=== PATIENT | female | born 1970 | race Caucasian/White ===

== ENCOUNTER → 2016-11-09 | Outpatient (CLI) | payer BC ==
[~2016-11-09] MED LIST: ALBU1AER9 INH; ALUMSUS PO; ATOR-54 PO; BUPR75TA3 PO; CYAN10004 PO; DILT-113 PO; FEXO1TAB46 PO; FLUT0.15 NAE; LISI-725 PO; VENL75TA4 PO
[2016-11-09 13:43] LABS: BLOOD UREA NITROGEN 9 mg/dl (7-18); BUN/CREATININE RATIO 12.4 (10-20); CALCIUM 8.9 mg/dl (8.5-10.1); CARBON DIOXIDE 27 mmol/L (21-32); CHLORIDE 105 mmol/L (98-107); CREATININE 0.74 mg/dl (0.60-1.20); GLUCOSE 125 mg/dl (70-99); MAGNESIUM 2.1 mg/dl (1.8-2.4); POTASSIUM 3.7 mmol/L (3.5-5.1); SODIUM 139 mmol/L (136-145)
== END | disposition home or self-care (01) ==
LOC: C.LABBC 11:36
PROVIDERS: ATTEND Family Medicine
DX: M79.1 Myalgia (principal)

== ENCOUNTER → 2017-01-18 | Outpatient (CLI) | payer BC ==
[2017-01-18 11:30] LABS: ALT/SGPT 15 U/L (12-78); BLOOD UREA NITROGEN 9 mg/dl (7-18); BUN/CREATININE RATIO 11.6 (10-20); CALCIUM 8.7 mg/dl (8.5-10.1); CARBON DIOXIDE 25 mmol/L (21-32); CHLORIDE 106 mmol/L (98-107); CREATININE 0.75 mg/dl (0.60-1.20); GLUCOSE 114 mg/dl (70-99); POTASSIUM 3.8 mmol/L (3.5-5.1); SODIUM 138 mmol/L (136-145)
[2017-01-18 11:34] LABS: CHOLESTEROL 165 mg/dl (0-200); CHOLESTEROL/HDL RATIO 3.8; HDL CHOLESTEROL 44 mg/dl; LDL CHOLESTEROL CALCULATED 89 mg/dl; TRIGLYCERIDES 158 mg/dl (0-150); VERY LOW DENSITY LIPOPROT CALC 32 mg/dl
[2017-01-18 13:38] LABS: ESTIMATED AVERAGE GLUCOSE 117 mg/dl; HA1C FLAG Normal (Normal)
== END | disposition home or self-care (01) ==
LOC: C.LABBC 07:54
PROVIDERS: ATTEND Family Medicine
DX: E78.00 Pure hypercholesterolemia, unspecified (principal); I10 Essential (primary) hypertension; E88.81 Metabolic syndrome and other insulin resistance

== ENCOUNTER → 2017-01-29 | Outpatient (CLI) | payer BC ==
--- NOTE | 2017-01-29 12:44 | DIAGNOSTIC IMAGING REPORT ---
R HIP UNILATERAL 2 VIEWS CLINICAL HISTORY: M25.551 Right hip painPt with worsening right hip pain. Pos pain pain COMPARISON: None. DISCUSSION: The bones and joint spaces appear intact. There is no evidence of fracture, dislocation or bony disease. There is no evidence for soft tissue swelling. IMPRESSION: Negative study. The above report was generated using voice recognition software. It may contain grammatical, syntax or spelling errors. Electronically signed by: Kaushik Deng M.D. 01/29/2017 12:42 PM Dictated Date/Time: 01/29/2017 12:42 PM
== END | disposition home or self-care (01) ==
LOC: C.RADBC 12:07
PROVIDERS: ATTEND Family Medicine
DX: M25.551 Pain in right hip (principal)

== ENCOUNTER → 2017-04-27 | Outpatient (CLI) | payer BC ==
--- NOTE | 2017-04-27 12:41 | DIAGNOSTIC IMAGING REPORT ---
CHEST 2 VIEWS ROUTINE HISTORY: 46 years-old Female R07.89 Chest discomfortPt with c/o chest discomfort for 3 days acute atypical chest pain with cough COMPARISON: Chest radiograph 11/11/2015 TECHNIQUE: PA and lateral views of the chest FINDINGS: Cardiac mediastinal and hilar silhouettes are within normal limits. Linear subsegmental opacities of the regular suggest atelectasis or scarring. No pneumothorax, pleural effusion or overt pulmonary edema. Bones of the chest appear grossly intact. IMPRESSION: Minimal linear subsegmental atelectasis or scarring of the lingula without acute process. The above report was generated using voice recognition software. It may contain grammatical, syntax or spelling errors. Electronically signed by: Rome Blanco M.D. 04/27/2017 12:40 PM Dictated Date/Time: 04/27/2017 12:36 PM
== END | disposition home or self-care (01) ==
LOC: C.RADBC 12:09
PROVIDERS: ATTEND Family Medicine
DX: R07.89 Other chest pain (principal)

== ENCOUNTER → 2017-05-11 | Outpatient (CLI) | payer BC ==
[~2017-05-11] MED LIST changes: +ALBINS NEB; +ATRINSX NEB; +DOXY100C2 PO; +LSN20 PO; +PRED10TA PO; +PRED20TA PO; +ZCR40 PO
--- NOTE | 2017-05-11 11:02 | DIAGNOSTIC IMAGING REPORT ---
CHEST 2 VIEWS ROUTINE HISTORY: 46 years-old Female J45.901 Asthmatic bronchitis with [id number] acute asthma COMPARISON: Chest radiographs 04/27/2017 and 11/11/2015 TECHNIQUE: PA and lateral views of the chest FINDINGS: Cardiac silhouette is within normal limits. There is are ill-defined right perihilar airspace opacities which appears new from prior study and appears to localize to the right upper lobe on the lateral view. Linear subsegmental left basilar opacities favor atelectasis. No pneumothorax, pleural effusion or overt pulmonary edema. Bones of the chest appear grossly intact. IMPRESSION: 1. New alveolar opacities of the right upper lobe suggest pneumonia. Follow-up imaging to document resolution is recommended. 2. Minimal subsegmental left basilar atelectasis. The above report was generated using voice recognition software. It may contain grammatical, syntax or spelling errors. Electronically signed by: Rome Blanco M.D. 05/11/2017 11:01 AM Dictated Date/Time: 05/11/2017 10:57 AM
== END | disposition home or self-care (01) ==
LOC: C.RADBC 10:40
PROVIDERS: ATTEND Nurse Practitioner Family
DX: J45.901 Unspecified asthma with (acute) exacerbation (principal)

== ENCOUNTER 2017-05-13 10:19 | Emergency (ER) | payer BC ==
[~2017-05-13] VITALS: Ht 165.1 cm; Wt 79.7 kg
[~2017-05-13 10:19] MED LIST changes: -ALBINS NEB; -ATRINSX NEB; -DOXY100C2 PO; -LSN20 PO; -PRED10TA PO; -PRED20TA PO; -ZCR40 PO
[2017-05-13 10:28] VITALS: TEMP 36.9; Ht 165.1 cm; Wt 79.7 kg
[2017-05-13] MEDS ORDERED: METHYLPREDNISOLONE 125 MG VIAL IV STA (10:53)
--- NOTE | 2017-05-13 10:53 | EMERGENCY ROOM VISIT NOTE ---
History Report prepared by Logan: Milan Bernabe Under the Supervision of: Dr. Benjamin Lake M.D. First contact with patient: 10:44 Chief Complaint: COUGH Stated Complaint: COUGH Nursing Triage Summary: Patient states "My doctor called me today and told me to come to the ER. My x-rays Wednesday showed pneumonia." History of Present Illness The patient is a 46 year old female who presents to the Emergency Room with complaints of a persistent illness that started 4 days ago. She states that she had an x-ray 2 days ago which showed pneumonia. The patient says that she has been coughing a lot with a runny nose, and some chest tightness. She notes that she started 100 mg Doxycycline 2 days ago, but has not been getting any better. The patient adds that she has been on Prednisone 40 mg. The patient states that she was not checked for influenza. She denies any loss of consciousness, abdominal pain, urinary symptoms, or calf pain. She notes no recent long trips. The patient has a history of bronchitis. She notes that her son is currently sick. She is an ex-smoker. Source of History: patient Onset: 4 days ago Position: other (global) Symptom Intensity: x-ray showed pneumonia Quality: other (illness) Timing: other (persistent) Associated Symptoms: + cough (with runny nose), + chest pain (tightness), No LOC, No abdominal pain, No urinary symptoms Note: Associated symptoms: Denies calf pain. Review of Systems See HPI for pertinent positives & negatives. A total of 10 systems reviewed and were otherwise negative. Past Medical & Surgical Medical Problems: (1) Bronchitis (2) No chronic problems Surgical Problems: (1) History of hysterectomy Family History Diabetes mellitus FHx: cancer FHx: heart disease Hypertension Social History Smoking Status: Never Smoker Alcohol Use: occasionally Marital Status: Occupation Status: employed Current/Historical Medications Scheduled Diltiazem Hcl Ext Rel (Tiazac), 180 MG PO DAILY Doxycycline Hyclate (Vibramycin), 100 MG PO DAILY Ipratropium [place] (Atrovent 0.02% Soln), 1 TUBE NEB Q4H Lisinopril (Zestril), 0.5 TABLET PO BID Lisinopril (Lisinopril), 20 MG PO BID Prednisone (Prednisone), 10 MG PO DIRECTED Prednisone (Prednisone), 2 TAB PO DAILY Simvastatin (Simvastatin), 40 MG PO DAILY Venlafaxine Hcl (Effexor), 75 MG PO DAILY Scheduled PRN Albuterol Sulf (Albuterol Sulfate), 1 TUBE NEB Q4 PRN for Wheezing Allergies Coded Allergies: POLLEN (Unverified Allergy, Mild, FROM [facility] RECORD, 10/16/14) Levofloxacin (Unverified Allergy, Unknown, FR [facility] RECORD, 10/16/14) Tramadol (Unverified Allergy, Unknown, [facility] RECORD, 10/16/14) Physical Exam Vital Signs Date Time Temp Pulse Resp B/P (MAP) Pulse Ox O2 Delivery O2 Flow Rate FiO2 05/13/17 13:49 105 22 149/84 93 05/13/17 12:35 101 22 134/80 99 Room Air 05/13/17 11:48 88 15 120/78 98 Nebulizer 05/13/17 11:31 81 18 93 Room Air 05/13/17 10:58 98 05/13/17 10:31 96 Room Air 05/13/17 10:28 36.9 107 18 143/97 97 Room Air Physical Exam GENERAL: Patient is unwell appearing and in mild acute distress. EYES: No scleral icterus, unremarkable pupils. ENT: Mucous membranes moist, no nasal congestion. NECK: No masses appreciated, no meningismus, trachea is midline. RESPIRATORY: Productive junky cough. Diffuse wheezing all lung rodriguez. Crackles throughout right lung field. CARDIOVASCULAR: Regular rate and rhythm. No murmurs, rubs, gallops appreciated. GASTROINTESTINAL: Abdomen soft, nontender, no peritonitis. Bowel sounds positive. No masses appreciated. BACK: No midline tenderness, no CVA tenderness EXTREMITIES: Normal motion all extremities, no cyanosis, no edema. NEUROLOGIC: Alert and oriented, no acute motor or sensory deficits, no focal weakness, cranial nerves grossly intact. SKIN: No rash, no jaundice, no diaphoresis. Medical Decision & Procedures ER Provider Diagnostic Interpretation: X ray results are stated below per my interpretation and the radiologist's interpretation. CHEST ONE VIEW PORTABLE CLINICAL HISTORY: 46 years-old Female presenting with 2 days ago RUL infiltrate. Symptoms worsening. TECHNIQUE: Portable upright AP view of the chest was obtained. COMPARISON: 05/11/2017. FINDINGS: Cardiomediastinal silhouette normal. Lungs and pleural spaces clear. Osseous structures normal. Upper abdomen normal. IMPRESSION: 1. No acute cardiopulmonary disease. Electronically signed by: Dimas Chandler M.D. 05/13/2017 11:16 AM Dictated Date/Time: 05/13/2017 11:15 AM Laboratory Results 05/13/17 11:00 Red Blood Count 4.90, Mean Corpuscular Volume 90.8, Mean Corpuscular Hemoglobin 31.6, Mean Corpuscular Hemoglobin Concent 34.8, Mean Platelet Volume 8.5, Neutrophils (%) (Auto) 54.5, Lymphocytes (%) (Auto) 29.6, Monocytes (%) (Auto) 11.2, Eosinophils (%) (Auto) 4.0, Basophils (%) (Auto) 0.4, Neutrophils # (Auto ) 5.52, Lymphocytes # (Auto) 3.00, Monocytes # (Auto) 1.13, Eosinophils # (Auto ) 0.41, Basophils # (Auto) 0.04 05/13/17 11:00 Test 05/13/17 11:00 05/13/17 11:15 White Blood Count 10.13 K/uL (4.8-10.8) Red Blood Count 4.90 M/uL (4.2-5.4) Hemoglobin 15.5 g/dL (12.0-16.0) Hematocrit 44.5 % (37-47) Mean Corpuscular Volume 90.8 fL (80-100) Mean Corpuscular Hemoglobin 31.6 pg (25-34) Mean Corpuscular Hemoglobin Concent 34.8 g/dl (32-36) Platelet Count 327 K/uL (130-400) Mean Platelet Volume 8.5 fL (7.4-10.4) Neutrophils (%) (Auto) 54.5 % Lymphocytes (%) (Auto) 29.6 % Monocytes (%) (Auto) 11.2 % Eosinophils (%) (Auto) 4.0 % Basophils (%) (Auto) 0.4 % Neutrophils # (Auto) 5.52 K/uL (1.4-6.5) Lymphocytes # (Auto) 3.00 K/uL (1.2-3.4) Monocytes # (Auto) 1.13 K/uL (0.11-0.59) Eosinophils # (Auto) 0.41 K/uL (0-0.5) Basophils # (Auto) 0.04 K/uL (0-0.2) RDW Standard Deviation 43.0 fL (36.4-46.3) RDW Coefficient of Variation 13.0 % (11.5-14.5) Immature Granulocyte % (Auto) 0.3 % Immature Granulocyte # (Auto) 0.03 K/uL (0.00-0.02) Anion Gap 8.0 mmol/L (3-11) Est Creatinine Clear Calc Drug Dose 87.3 ml/min Estimated GFR () 96.6 Estimated GFR (Non- 83.3 BUN/Creatinine Ratio 15.5 (10-20) Calcium Level 9.1 mg/dl (8.5-10.1) Total Creatine Kinase 47 U/L (26-192) Creatine Kinase MB 0.9 ng/ml (0.5-3.6) Creatine Kinase MB Ratio 1.9 (0-3.0) Troponin I < 0.015 ng/ml (0-0.045) Influenza Type A (RT-PCR) Neg for Influ A (NEG) Influenza Type B (RT-PCR) Neg for Influ B (NEG) Laboratory results as reviewed by me. Medications Administered Medications (Trade) Dose Ordered Sig/Michelle Route Start Time Stop Time Status Last Admin Dose Admin Methylprednisolone Sodium Succinate (Solu-Medrol IV) 125 mg NOW STAT IV 05/13/17 10:53 05/13/17 10:55 DC 05/13/17 11:06 125 MG Albuterol/ Ipratropium (Duoneb) 12 ml ONE ONCE INH 05/13/17 11:00 05/13/17 11:01 DC 05/13/17 11:00 12 ML ECG Per My Interpretation Indication: chest pain Rate (beats per minute): 80 Rhythm: normal sinus Findings: no acute ischemic change, no ectopy, other (QTC of 470) ED Course 1048: The patient was evaluated in room C9. A complete history and physical exam was performed. 1235: Upon reevaluation, the patient is still wheezing loudly despite more than an hour of the nebulizer treatment. She does not feel comfortable going home . Discussed results and treatment plan with the patient. She verbalized understanding and agreement with the treatment plan. The patient will be evaluated for further management. 1241: I discussed the patient with Dr. Moreira - [facility] [place] - he says he will see the patient first. 1317: I discussed the patient with Dr. Harish HIGGINS hospitalist - he says the patient should be discharged with nebulizers, further Prednisone, and continue the Doxycycline. 1337: Reevaluated the patient and she feels comfortable going home and would like a work note for the week. Discussed results and discharge instructions: she verbalized understanding and agreement. The patient is ready for discharge. Medical Decision Differential: Infectious, Reactive Airway Disease, Pneumonia, Pneumothorax, COPD , CHF, ACS, Pulmonary Embolism, MSK, GI, Dissection, amongst other etiologies entertained. 46 yr old female who likely has some underlying asthma/copd issues given history arrives for evaluation of failure outpatient therapy of bronchitis in setting of PNA diagnosed 2 days ago by CXR. Exam consistent iwth exacerbation worse on right side. CXR not convincing for pneumonia today. No risks of PE and symptoms not consistent with that. No eivdence of CHF nor ACS as cause. She is getting somewhat better with hour neb but given continued wheezing I discussed case with hospitalist. They evaluated her and do not feel she needs to be admitted at this time. I discussed this with jane who is agreeable to continue trying home therapy. Written nebulizer and albuterol along with 2 more days of steroids. She will continue her doxycyline. She is aware she can return at any time if worsening or other concerns. She is stable and breathing comfortably. Will will continue to consider this reactive airway disease secondary to pneumonia. She was encouraged to follow closely with her PCP and discuss pulm func tests as well. Medication Reconcilliation Current Medication List: was personally reviewed by me Blood Pressure Screening Patient's blood pressure: Elevated blood pressure Monitored by hospitalist. Consults Time Called: 1237 Consulting Physician: Dr. Harish HIGGINS hospitalist Returned Call: 1241 I discussed the patient with Dr. Harish HIGGINS hospitalist - he says he will see the patient first. Additional Consults: Time Called: -- Consulted Physician: Dr. Harish HIGGINS hospitalist Returned Call: [phone] Additional Comments: I discussed the patient with Dr. Harish HIGGINS hospitalist - he says the patient should be discharged with nebulizers, further Prednisone, and continue the Doxycycline. Impression Primary Impression: PNA (pneumonia) Additional Impression: Acute respiratory distress Scribe Attestation The scribe's documentation has been prepared under my direction and personally reviewed by me in its entirety. I confirm that the note above accurately reflects all work, treatment, procedures, and medical decision making performed by me. Departure Information Dispostion Home / Self-Care Prescriptions Prednisone (Prednisone) 20 Mg Tab 2 TAB PO DAILY for 2 Days, #4 TAB Prov: Benjamin Lake M.D. 05/13/17 Albuterol Sulf (Albuterol Sulfate) 2.5 Mg/3 Ml Nebu 1 TUBE NEB Q4 Y for Wheezing, #1 BOX Prov: Benjamin Lake M.D. 05/13/17 Ipratropium [place] (Atrovent 0.02% Soln) 2.5 Ml Nebu 1 TUBE NEB Q4H, #1 BOX Prov: Benjamin Lake M.D. 05/13/17 Referrals No Doctor, Assigned (PCP) Patient Instructions My [facility] Additional Instructions We are always here to help. If you feel symptoms are worsening or you are having other issues call 911 or return immediately. Follow up with your Primary Provider for repeat evaluation. Problem Qualifiers
[2017-05-13] MEDS ORDERED: ALBUT/IPRATROP 3MG/0.5MG NEB 3 ML VIAL INH ONE (11:00)
[2017-05-13 11:15] LABS: BASO % 0.4 %; BASO ABS # 0.04 K/uL (0-0.2); EOS ABS # 0.41 K/uL (0-0.5); HEMATOCRIT 44.5 % (37-47); HEMOGLOBIN 15.5 g/dL (12.0-16.0); IG# 0.03 K/uL (0.00-0.02); LYMPH % 29.6 %; MEAN CELL VOLUME 90.8 fL (80-100); MEAN CORPUSCULAR HEMOGLOBIN 31.6 pg (25-34); MEAN CORPUSCULAR HGB CONC 34.8 g/dl (32-36); MEAN PLATELET VOLUME 8.5 fL (7.4-10.4); MONO % 11.2 %; MONO ABS # 1.13 K/uL (0.11-0.59); NEUT % 54.5 %; NEUT ABS # 5.52 K/uL (1.4-6.5); PLATELET COUNT 327 K/uL (130-400); WHITE BLOOD COUNT 10.13 K/uL (4.8-10.8)
--- NOTE | 2017-05-13 11:17 | DIAGNOSTIC IMAGING REPORT ---
CHEST ONE VIEW PORTABLE CLINICAL HISTORY: 46 years-old Female presenting with 2 days ago RUL infiltrate. Symptoms worsening. TECHNIQUE: Portable upright AP view of the chest was obtained. COMPARISON: 05/11/2017. FINDINGS: Cardiomediastinal silhouette normal. Lungs and pleural spaces clear. Osseous structures normal. Upper abdomen normal. IMPRESSION: 1. No acute cardiopulmonary disease. Electronically signed by: Dimas Chandler M.D. 05/13/2017 11:16 AM Dictated Date/Time: 05/13/2017 11:15 AM
[2017-05-13 11:31] VITALS: PULSE 81; O2SAT 93
[2017-05-13 11:33] LABS: BLOOD UREA NITROGEN 13 mg/dl (7-18); CALCIUM 9.1 mg/dl (8.5-10.1); CARBON DIOXIDE 26 mmol/L (21-32); CREATININE 0.84 mg/dl (0.60-1.20); GLUCOSE 129 mg/dl (70-99); SODIUM 139 mmol/L (136-145)
[2017-05-13 11:38] LABS: CKMB 0.9 ng/ml (0.5-3.6)
[2017-05-13] MEDS ORDERED: DOXY100C2 PO (11:41)
[2017-05-13] MEDS ORDERED: LSN20 PO (11:41)
[2017-05-13] MEDS ORDERED: ZCR40 PO (11:41)
[2017-05-13] MEDS ORDERED: PRED10TA PO (11:41)
[2017-05-13 12:15] LABS: INFLUENZA A PCR Neg for Influ A (NEG); INFLUENZA B PCR Neg for Influ B (NEG)
[2017-05-13] MEDS ORDERED: PRED20TA PO (13:29)
[2017-05-13] MEDS ORDERED: ATRINSX NEB (13:29)
[2017-05-13] MEDS ORDERED: ALBINS NEB (13:29)
--- NOTE | 2017-05-13 13:29 | Medical Consult ---
Consultation Date of Consultation: May 13, 2017. Attending Physician: Reason for Consultation: Medical CO management History of Present Illness 46 years old female with past medical history of mild intermittent asthma that flares about once a year when she gets bronchitis, patient also has hypertension and dyslipidemia. As per patient she has only albuterol inhaler at home for her asthma and she only uses it once a year when she gets bronchitis and asthma exacerbation. 5 days ago patient son had upper respiratory tract infection at home and she caught it from him. She started coughing and had some shortness of breath. She started using her asthma inhaler. She saw her primary care physician 2 days ago who started her on doxycycline and tapering dose of prednisone. Patient used her albuterol inhaler 3 times yesterday and came today to the hospital for further evaluation. On arrival patient oxygen saturation were above 95 on room air heart rate was always between 80 and 90 until she received albuterol inhaler which went to about 100.. Patient still have symptoms of upper respiratory tract infection but nothing significant. Appears to be comfortable not using accessory muscles of respiration. She does not smoke and lives with her nobody smokes in the house Past Medical/Surgical History Medical Problems: (1) Acute respiratory distress Status: Acute (2) PNA (pneumonia) Status: Acute Family History Diabetes mellitus FHx: cancer FHx: heart disease Hypertension Social History Smoking Status: Never Smoker Marital Status: Occupation Status: employed Allergies Coded Allergies: POLLEN (Unverified Allergy, Mild, FROM [facility] RECORD, 10/16/14) Levofloxacin (Unverified Allergy, Unknown, FR [facility] RECORD, 10/16/14) Tramadol (Unverified Allergy, Unknown, [facility] RECORD, 10/16/14) Review of Systems Review of system Constitutional: No fever / no chills / no sweats / no weakness / no fatigue Eyes: no blurring of vision / no eye pain / no discharge / no redness ENT: no hearing loss / no epistaxis /no swallowing problems Respiratory: Cough wheezing and shortness of breath as in HPI Cardiovascular: no Chest pain / no lower extremity edema / no palpitation Abdomen: no pain / no nausea / no vomiting / no constipation Musculoskeletal: no joint pain / no muscle pain / no joint swelling Genitourinary: no dysuria / no incontinence / no urinary retention Neurologic: no focal weakness / no numbness/tingling / no ataxia Psychiatric: no depression symptoms / no anxiety / no insomnia Endocrine: no excessive thirst / no excessive urination Hematologic: no abnormal bleeding / no bruising / no LN swelling Skin: No rash / no pallor Physical Exam Date Time Temp Pulse Resp B/P (MAP) Pulse Ox O2 Delivery O2 Flow Rate FiO2 05/13/17 12:35 101 22 134/80 99 Room Air 05/13/17 11:48 88 15 120/78 98 Nebulizer 05/13/17 11:31 81 18 93 Room Air 05/13/17 10:58 98 05/13/17 10:31 96 Room Air 05/13/17 10:28 36.9 107 18 143/97 97 Room Air Physical examination General patient appears to be comfortable, not in acute distress HEENT: Atraumatic , normocephalic /no jaundice /no pallor /anicteric /no dry mucous membrane /normal external ear inspection Neck: Supple /no swelling /central trach Heart: S1/S2 normal/regular rate and rhythm/no gallop /no rub /no murmur Lungs: Mild wheezing bilaterally/normal chest with expansion/few scattered rhonchi/no use of accessory muscles of respiration Abdomen: Soft/nontender/no guarding/no rebound/no organomegaly/no pulsatile mass Musculoskeletal: No swelling/no edema/no tenderness/normal range of motion Neuro exam: Awake alert oriented 3/cranial nerves II through XII appear to be intact/sensation intact/moves all extremities/no abnormal movements Psychiatric evaluation: No depressed mood/normal affect Skin: No rash on exposed skin area/no erythema Extremity: Normal pulse/no pitting edema/no clubbing or cyanosis Endocrine/lymphatic: No obvious lymphadenopathy /no lymphedema Laboratory Results Last 24 Hours Test 05/13/17 11:00 05/13/17 11:15 White Blood Count 10.13 K/uL Red Blood Count 4.90 M/uL Hemoglobin 15.5 g/dL Hematocrit 44.5 % Mean Corpuscular Volume 90.8 fL Mean Corpuscular Hemoglobin 31.6 pg Mean Corpuscular Hemoglobin Concent 34.8 g/dl Platelet Count 327 K/uL Mean Platelet Volume 8.5 fL Neutrophils (%) (Auto) 54.5 % Lymphocytes (%) (Auto) 29.6 % Monocytes (%) (Auto) 11.2 % Eosinophils (%) (Auto) 4.0 % Basophils (%) (Auto) 0.4 % Neutrophils # (Auto) 5.52 K/uL Lymphocytes # (Auto) 3.00 K/uL Monocytes # (Auto) 1.13 K/uL Eosinophils # (Auto) 0.41 K/uL Basophils # (Auto) 0.04 K/uL RDW Standard Deviation 43.0 fL RDW Coefficient of Variation 13.0 % Immature Granulocyte % (Auto) 0.3 % Immature Granulocyte # (Auto) 0.03 K/uL Sodium Level 139 mmol/L Potassium Level 3.0 mmol/L Chloride Level 105 mmol/L Carbon Dioxide Level 26 mmol/L Anion Gap 8.0 mmol/L Blood Urea Nitrogen 13 mg/dl Creatinine 0.84 mg/dl Est Creatinine Clear Calc Drug Dose 87.3 ml/min Estimated GFR () 96.6 Estimated GFR (Non- 83.3 BUN/Creatinine Ratio 15.5 Random Glucose 129 mg/dl Calcium Level 9.1 mg/dl Total Creatine Kinase 47 U/L Creatine Kinase MB 0.9 ng/ml Creatine Kinase MB Ratio 1.9 Troponin I < 0.015 ng/ml Influenza Type A (RT-PCR) Neg for Influ A Influenza Type B (RT-PCR) Neg for Influ B Assessment & Plan 46-year-old female with hypertension, dyslipidemia and mild asthma presented to the hospital with bronchitis and asthma exacerbation. Assessment Acute bronchitis Mild intermittent asthma with exacerbation Hypertension controlled Dyslipidemia Plan Patient seen in the ED She appears to be coherent, intelligent, compliant with medications with good social economic status and family support Patient never been hospitalized before for asthma never been intubated before in her life Not using accessory muscles of respiration vitals are all within normal limits oxygen saturation is within normal limits on room air And no tachycardia Chest x-ray showed no pneumonia Giving all of the above I think patient can be treated safely at home but will require nebulizer machine. Explained to patient how to use albuterol and Atrovent mixing them together every 6 hours for the next few days then switch to as needed Also explained to her that she has to start her prednisone course from the beginning she was then tapering dose of prednisone starting from 40 she can continue doxycycline for possible underlying bronchitis Clearly explained to them to come back immediately if she gets worse or gets more short of breath Family appreciated and understood my recommendations Discussed all these recommendations with Dr. Lake who agreed with the plan Patient will need pulmonary function test in 8 weeks after resolution of her symptoms
[2017-05-13 13:49] VITALS: BP 149/84; PULSE 105; O2SAT 93
== END 2017-05-13 13:51 | disposition home or self-care (01) ==
LOC: C.EDB 10:21 → C.EDC 13:51
DX: J18.9 Pneumonia, unspecified organism (principal); J06.9 Acute upper respiratory infection, unspecified; Z83.3 Family history of diabetes mellitus; Z82.49 Family history of ischemic heart disease and other diseases of the circulatory system

== ENCOUNTER → 2017-06-24 | Outpatient (CLI) | payer BC ==
[~2017-06-24] MED LIST changes: +ALBINS NEB; -ALBU1AER9 INH; -ALUMSUS PO; -ATOR-54 PO; +ATRINSX NEB; -BUPR75TA3 PO; -CYAN10004 PO; +DOXY100C2 PO; -FEXO1TAB46 PO; -FLUT0.15 NAE; +LSN20 PO; +PRED10TA PO; +ZCR40 PO
--- NOTE | 2017-06-24 12:14 | DIAGNOSTIC IMAGING REPORT ---
L FOOT MIN 3 VIEWS ROUTINE HISTORY: 47 years-old Female M79.672 Acute foot pain, left acute left foot pain without known trauma COMPARISON: None available TECHNIQUE: 3 views of the left foot FINDINGS: Type II accessory navicular. Small plantar and Achilles enthesophytes about the calcaneus. There is no acute fracture or dislocation. Mild dorsal forefoot soft tissue prominence without opaque foreign body. Mild cortical thickening of the medial cortex third metatarsal. IMPRESSION: 1. Mild dorsal forefoot soft tissue prominence without acute fracture or dislocation. There is however mild cortical thickening involving the medial cortex of the third metatarsal which may reflect sequela of healed stress response/stress fracture. 2. Mild degenerative changes as above. The above report was generated using voice recognition software. It may contain grammatical, syntax or spelling errors. Electronically signed by: Rome Blanco M.D. 06/24/2017 12:12 PM Dictated Date/Time: 06/24/2017 12:09 PM
== END | disposition home or self-care (01) ==
LOC: C.RADBC 11:33
PROVIDERS: ATTEND Family Medicine
DX: M79.672 Pain in left foot (principal)

== ENCOUNTER → 2017-09-28 | Day surgery (SDC) | payer BC ==
[2017-09-02 15:50] VITALS: Ht 165.1 cm; Wt 81.8 kg
[~2017-09-28] VITALS: Ht 165.1 cm; Wt 81.8 kg
[~2017-09-28] MED LIST changes: +ACETAMINOPHEN 500 MG TAB PO STA; +ATROPINE SULFATE 0.1 MG/ML 5ML SYR IV PRN; +BUPIVACAINE 0.5 % 5 MG/1 ML PF 10ML VIAL ONE; +CEFAZOLIN 2000MG IV PUSH 15 ML IV SCH; -DILT-113 PO; -DOXY100C2 PO; +EpHEDrine SULFATE INJ 50 MG/ML AMP IV PRN; +FENTANYL CITRATE INJ 50 MCG/1 ML 2 ML VIAL IV PRN; +FENTANYL CITRATE INJ 50 MCG/1 ML 2 ML VIAL ONE; +FEXO1TAB49 PO; +FLUMAZENIL 0.1 MG/1 ML 10 ML VIAL IV PRN; +LABETALOL HCL IV 5 MG/ML 20ML IV PRN; +LACTATED RINGER'S 1000ML 1,000 ML IV SCH; +LIDOCAINE HCL 1% 20 ML VIAL ONE; +LIDOCAINE HCL 2% 2 ML VIAL (20MG/ML) ONE; -LISI-725 PO; +LISI-726 PO; -LSN20 PO; +MEPERIDINE HCL 25 MG/ML CARP IV PRN; +MIDAZOLAM HCL 1 MG/ML 2ML VIAL ONE; +NALOXONE HCL 0.4 MG/1 ML VIAL/CARP IV PRN; +ONDANSETRON INJ 2 MG/ML 2 ML VIAL IV PRN; +PHENYLEPHRINE 100MCG/ML 5ML SYR IV PRN; -PRED10TA PO; +PROPOFOL IV EMULSION 10 MG/ML 20 ML VIAL ONE; +SODIUM CHLORIDE 0.9% 1000ML 1,000 ML IV SCH
--- NOTE | 2017-09-28 09:35 | History & Physical Bridge - SC ---
H&P Re-Evaluation Bridge Note: I have examined the patient, reviewed the History & Physical and in the interval since the performance of the History & Physical I have noted the following changes of clinical significance: No changes noted
--- NOTE | 2017-09-28 10:57 | [facility] Post Operative Brief Note ---
Immediate Operative Summary Operative Date Sep 28, 2017. Pre-Operative Diagnosis Left Carpal Tunnel Syndrome Post-Operative Diagnosis Same Procedure(s) Performed Left Carpal Tunnel Release Surgeon Dr. Urbina Cushion Builder Surgeon(s) Dontrell Posada PA-C Estimated Blood Loss 0 Findings Consistent with Post-Op Diagnosis Specimens None Drains None Anesthesia Type MAC Complication(s) none Disposition Accompanied Pt To Recover: no Disposition:
[2017-09-28 11:00] VITALS: TEMP 36.7
--- NOTE | 2017-09-28 11:05 | Discharge Instructions-[facility] ---
Discharge Instructions Date of Service Sep 28, 2017. Visit Reason for Visit: Left Carpal Tunnel Syndrome Discharge Discharge Diagnosis / Problem: SAME ABOVE Discharge Goals Goal(s): Decrease discomfort, Improve function Activity Recommendations Activity Limitations: as noted below Lifting Limitations: until after follow-up appointment Exercise/Sports Limitations: until after follow-up appointment Shower/Bathe: keep incision dry Anesthesia . Post Anesthesia Instructions: If you have had General Anesthesia or IV Sedation: * Do not drive today. * Resume driving when surgeon permits. * Do not make important decisions or sign legal documents today. * Call surgeon for: 1. Temperature elevations greater than 101 degrees F. 2. Uncontrollable pain. 3. Excessive bleeding. 4. Persistent nausea and vomiting. 5. Medication intolerance (nausea, vomiting or rash). * For nausea and vomiting use only clear liquids such as: tea, soda, bouillon until nausea subsides, then gradually increase diet as tolerated. * If you have any concerns or questions, call your surgeon's office. If physician is unavailable and it is an emergency, call 911 or go to the nearest emergency room. . Instructions / Follow-Up Instructions / Follow-Up MEDICATIONS: * Resume previous medications unless instructed otherwise by your surgeon. * Always take pain medication on a full stomach or with food to avoid upset stomach. * Do not drink alcohol or drive while taking narcotics. * Ibuprofen or Tylenol may be taken if narcotic not needed. SPECIAL CARE INSTRUCTIONS: __ None _X_ Keep extremity elevated and iced x 48 hours; apply ice 20-30 minutes 8-10 times/day. May remove at night. __ Sling __24 hrs/day __ Remove at night __ Shoulder Immobilizer __ 24 hrs/day __ Remove at night _X_ Dressing _X_ Maintain until seen in office, may shower with plastic over site __ Remove dressings in 24-48 hours and then may shower __ Cover incisions with band-aids after showering __ Do not remove steri-strips YOU CAN USE 800 MG OF IBUPROFEN 3X DAY OR 2 ALLEVE IN AM AND 2 IN PM. YOU CAN ALSO ADD TYLENOL 1000 MG EVERY 8 HOURS NEEDED FOR PAIN Call physician if chills or temperature rises above 102 degrees or pain unrelieved by prescribed pain medications at . . MEDICATIONS: * Resume previous medications unless instructed otherwise by your surgeon. * Always take pain medication on a full stomach or with food to avoid upset stomach. * Do not drink alcohol or drive while taking narcotics. * Ibuprofen or Tylenol may be taken if narcotic not needed. SPECIAL CARE INSTRUCTIONS: __ None __ Keep extremity elevated and iced x 48 hours; apply ice 20-30 minutes 8-10 times/day. May remove at night. __ Crutches __ May discard when able __ Brace/Post-op shoe __ 24 hrs/day __ Remove at night __ Dressing __ Maintain until seen in office, may shower with plastic over site __ Remove dressings in 24-48 hours and then may shower __ Cover incisions with band-aids after showering __ Do not remove steri-strips Call physician if chills or temperature rises above 102 degrees or pain unrelieved by prescribed pain medications. Office [phone] Diet Recommendations Home Diet: resume previous diet Procedures Procedures Performed: Left Carpal Tunnel Release Pending Studies Studies pending at discharge: no Medical Emergencies . Who to Call and When: Medical Emergencies: If at any time you feel your situation is an emergency, please call 911 immediately. . Non-Emergent Contact Non-Emergency issues call your: Primary Care Provider . . "Provider Documentation" section prepared by Dannie Posada. .
[2017-09-28 11:26] VITALS: BP 119/81; PULSE 69; O2SAT 97
--- NOTE | 2017-09-28 11:27 | Anesthesia Progress Nt - [facility] ---
Anesthesia Post Op Note Date & Time Sep 28, 2017 at 11:27 Vital Signs Pain Intensity: 0 Vital Signs Past 12 Hours Date Time Temp Pulse Resp B/P (MAP) Pulse Ox O2 Delivery O2 Flow Rate FiO2 09/28/17 11:26 69 16 119/81 (94) 97 Room Air 09/28/17 11:00 36.7 68 14 119/74 (89) 96 Room Air 09/28/17 09:16 36.8 78 16 126/83 (97) 98 Room Air Notes Mental Status: alert / awake / arousable, participated in evaluation Pt Amnestic to Procedure: Yes Nausea / Vomiting: adequately controlled Pain: adequately controlled Airway Patency, RR, SpO2: stable & adequate BP & HR: stable & adequate Hydration State: stable & adequate Anesthetic Complications: no major complications apparent
--- NOTE | 2017-09-28 13:15 | OPERATIVE REPORT ---
DATE OF OPERATION: 09/28/2017 PREOPERATIVE DIAGNOSIS: Left carpal tunnel. POSTOPERATIVE DIAGNOSIS: Same. PROCEDURE: Decompression, median nerve release, transverse carpal ligament, left wrist. SURGEON: Dimas Urbina MD IRON MINER: Dannie Posada PA-C. ANESTHESIOLOGIST: Dr. Rodriguez. ANESTHESIA: Local with IV sedation. DRAINS: None. COMPLICATIONS: None. CONDITION: The patient tolerated the procedure well and returned to recovery room in apparent satisfactory condition. INDICATIONS FOR SURGERY: Sonam is a 47-year-old female who has had increasing pain, numbness, and tingling in the left hand consistent with carpal tunnel syndrome. Went over treatment options and elected to go ahead and proceed with surgery. The procedure, expected outcome, side effects were all explained in detail. DESCRIPTION OF PROCEDURE: The patient was taken to the OR at which time she was placed supine on the operating table. The left hand was prepped and draped in the usual sterile fashion for this surgery. The anticipated incision site was infiltrated with 1% Xylocaine. A forearm tourniquet was placed on the arm and tourniquet was placed up to 250 mmHg. Incision was made vertically over the transverse carpal tunnel ligament. Dissection was done down until the palmar fascia was identified and divided with a 15-blade. The transverse carpal ligament was identified and also divided with the 15-blade and upbiting scissors. A small portion of the forearm fascia was divided also. Electrocautery was used to control any areas of bleeding. The nerve was freed up from any scar tissue and adequately decompressed. The wound then was copiously irrigated. It was closed then with interrupted 4-0 nylon sutures. Marcaine without Epinephrine was placed in the skin edges. It was closed in a layered fashion. We placed a sterile dressing of Xeroform, 4 x 4, volar splint, and an Miles bandage. DISPOSITION: The patient was returned back to the recovery room in apparent satisfactory condition. I attest to the content of the Intraoperative Record and any orders documented therein. Any exception s are noted below.
== END | disposition home or self-care (01) ==
LOC: X.SURG 08:39
PROVIDERS: ATTEND Orthopaedic Surgery
DX: G56.02 Carpal tunnel syndrome, left upper limb (principal); F32.9 Major depressive disorder, single episode, unspecified; E78.00 Pure hypercholesterolemia, unspecified; I10 Essential (primary) hypertension; F41.9 Anxiety disorder, unspecified; J45.909 Unspecified asthma, uncomplicated; E78.5 Hyperlipidemia, unspecified; Z79.899 Other long term (current) drug therapy